=== PATIENT | male | born 1995 | race Two or more races ===

== ENCOUNTER 2025-05-10 02:03 | Emergency (ER) | payer SELFPAY ==
[~2025-05-10] VITALS: Ht 175.3 cm; Wt 77.1 kg
[2025-05-10 03:00] VITALS: BP 111/78; TEMP 98.6; O2SAT 98
[2025-05-10] MEDS ORDERED: PRED20TA PO (03:27)
[2025-05-10] MEDS ORDERED: oxyCODONE/APAP (5/325 MG) 1 UDTAB TABLET ONE (03:40)
[2025-05-10] MEDS: oxyCODONE/APAP (5/325 MG) 1 UDTAB TABLET PO ONE (03:43)
== END 2025-05-10 03:44 | disposition home or self-care (01) ==
LOC: ER 02:11
DX: K08.89 Other specified disorders of teeth and supporting structures (principal); J45.909 Unspecified asthma, uncomplicated; Z79.52 Long term (current) use of systemic steroids; Z88.5 Allergy status to narcotic agent; Z88.6 Allergy status to analgesic agent
CPT/HCPCS: 99283; J7512